=== PATIENT | female | born 2000 | race Caucasian/White ===

== ENCOUNTER → 2024-09-28 | Outpatient (CLI) | payer OTHER | END | disposition home or self-care (01) | LOC: US 04:40 | PROVIDERS: ATTEND Nurse Practitioner Primary Care | DX: E04.9 Nontoxic goiter, unspecified (principal); R59.0 Localized enlarged lymph nodes ==

== ENCOUNTER → 2025-03-15 | Outpatient (CLI) | payer OTHER | END | disposition home or self-care (01) | LOC: US 02:35 | PROVIDERS: ATTEND Nurse Practitioner Primary Care | DX: E04.1 Nontoxic single thyroid nodule (principal) ==

== ENCOUNTER → 2025-10-18 | Outpatient (CLI) | payer OTHER | END | disposition home or self-care (01) | LOC: US 00:43 | PROVIDERS: ATTEND Nurse Practitioner Women's Health | DX: R10.20 Pelvic and perineal pain unspecified side (principal) ==